=== PATIENT | female | born 1960 | race Caucasian/White ===

== ENCOUNTER 2016-12-14 12:08 | Emergency (ER) | payer OTHER ==
[2016-12-14 12:23] VITALS: BP 164/78
[2016-12-14] MEDS ORDERED: Diphtheria,Pertussis(Acell),Tetanus Vaccine 0.5 ML SDV IM ONE (12:30)
[2016-12-14] MEDS ORDERED: Lidocaine 1% 20 ML MDV INJECT ONE (12:37)
[2016-12-14] MEDS ORDERED: Bacitracin Oint 1 GM U/D Packet TOP ONE (12:37)
--- NOTE | 2016-12-14 13:31 | EDM.PDOC ---
ED HPI GENERAL MEDICAL PROBLEM - General Chief Complaint: Laceration Stated Complaint: CUT RT RING FINGER Time Seen by Provider: 12/14/16 12:25 Source of Information: Reports: Patient History Limitations: Reports: No Limitations - History of Present Illness INITIAL COMMENTS - FREE TEXT/NARRATIVE: pt arrived with a laceration on the gregory aspect of the 4th finger. She fell and caught her self with the finger. She thought she could see the bone in the nite. Onset: Other (last nite. ) Duration: Hour(s): Location: Reports: Upper Extremity, Right Associated Symptoms: Reports: No Other Symptoms Right Hand Pain Score (Numeric/FACES): 6 - Related Data Allergies Allergy/AdvReac Type Severity Reaction Status Date / Time No Known Allergies Allergy Verified 12/14/16 12:27 Home Meds: Home Meds Hydrochlorothiazide 25 mg PO DAILY 12/14/16 [History] Metoprolol Succinate [Toprol XL] 50 mg PO DAILY 12/14/16 [History] Simvastatin [Zocor] 20 mg PO BEDTIME 12/14/16 [History] Past Medical History HEENT History: Reports: Impaired Vision Cardiovascular History: Reports: High Cholesterol, Hypertension 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: - Infectious Disease History Infectious Disease History: Reports: Chicken Pox Social & Family History - Tobacco Use Smoking Status *Q: Never Smoker Second Hand Smoke Exposure: No - Caffeine Use Caffeine Use: Reports: Soda - Alcohol Use Days Per Week of Alcohol Use: 2 Number of Drinks Per Day: 3 Total Drinks Per Week: 6 - Recreational Drug Use Recreational Drug Use: No ED ROS GENERAL - Review of Systems Review Of Systems: See Below Constitutional: Reports: No Symptoms HEENT: Reports: No Symptoms Respiratory: Reports: No Symptoms Cardiovascular: Reports: No Symptoms Endocrine: Reports: No Symptoms GI/Abdominal: Reports: No Symptoms : Reports: No Symptoms Musculoskeletal: Reports: Other (laceration of rt 4th finger) ED EXAM, SKIN/RASH Exam: See Below Text/Narrative:: pt has a laceration of the rt 4th finger. Exam Limited By: No Limitations General Appearance: Alert, Mild Distress Ears: Normal External Exam Nose: Normal Inspection Extremities: Other ( rt 4th finger at the mid pp joint has a laceration 1/2 in length. This is very ragged in nature. Her tendon sheath is visable. She has normal motion of the finger and normal sensation. Shas no injury to the tendon. A xray was obtained which did not reveal a fracture. ) Neurological: Alert, Normal Cognition Course - Vital Signs Last Recorded V/S: Last Vital Signs Temp 36.4 C 12/14/16 12:37 Pulse 74 12/14/16 12:37 Resp 16 12/14/16 12:37 BP 164/78 H 12/14/16 12:37 Pulse Ox 97 12/14/16 12:37 - Orders/Labs/Meds Orders: Active Orders 24 hr Category Date Time Status Vaccines to be Administered [RC] PER UNIT ROUTINE Care 12/14/16 12:30 Active Fingers Fourth Digit Rt F8 [CR] Stat Exams 12/14/16 12:25 Taken Meds: Medications Discontinued Medications Generic Name Dose Route Start Last Admin Trade Name Freq PRN Reason Stop Dose Admin Bacitracin 1 dose 12/14/16 12:37 12/14/16 12:49 Bacitracin Oint 1 Gm TOP 12/14/16 12:38 1 dose ONETIME ONE Administration Diphtheria/Tetanus/Acell Pertussis 0.5 ml 12/14/16 12:30 12/14/16 12:50 Adacel IM 12/14/16 12:31 0.5 ml .ONCE ONE Administration Lidocaine HCl 20 ml 12/14/16 12:37 12/14/16 12:48 Xylocaine 1% INJECT 12/14/16 12:38 20 ml ONETIME ONE Administration - Re-Assessments/Exams Free Text/Narrative Re-Assessment/Exam: 12/14/16 13:39 pt arrived with a ragged laceration. The area was cleansed well and infiltrated with lidocaine. It was brought together with 5-0 chromic and 6-0 prolene. It was dressed with bacatracin and a splint was applied to protect the wound. Departure - Departure Time of Disposition: 13:25 Disposition: Home, Self-Care 01 Condition: Fair Clinical Impression: Laceration - Discharge Information Instructions: [facility] Wound [facility], [id number] Referrals: PCP,None [Primary Care Provider] - Forms: ED Department Discharge Care Plan Goals: keflex 500mg tid, keep dry, no further ointments. sr in 7-8 days, tylenol and motrin 600mg q6h prn for pain Keep splinted and covered with dry dressing. - My Orders Last 24 Hours: My Active Orders 12/14/16 12:25 Fingers Fourth Digit Rt F8 [CR] Stat 12/14/16 12:30 Vaccines to be Administered [RC] PER UNIT ROUTINE - Assessment/Plan Last 24 Hours: My Active Orders 12/14/16 12:25 Fingers Fourth Digit Rt F8 [CR] Stat 12/14/16 12:30 Vaccines to be Administered [RC] PER UNIT ROUTINE
--- NOTE | 2016-12-16 09:00 | CR ---
Fingers Fourth Digit Rt F8 INDICATION: blow to the finger FINDINGS: Negative right fourth digit.
== END 2016-12-14 13:36 | disposition home or self-care (01) ==
LOC: JP.ED 12:08
DX: S61.214A Laceration without foreign body of right ring finger without damage to nail, initial encounter (principal); E78.00 Pure hypercholesterolemia, unspecified; I10 Essential (primary) hypertension; Z23 Encounter for immunization; Z79.899 Other long term (current) drug therapy; W19.XXXA Unspecified fall, initial encounter
CPT/HCPCS: 12001; 73140-26-F8; 73140-F8; 90471; 90715; 99284-25